=== PATIENT | female | born 1975 | race Two or more races ===

== ENCOUNTER 2024-05-18 07:45 | Emergency (ER) | payer MEDICAID, SELFPAY ==
--- NOTE | ~2024-05-18 | CT_ITS ---
EXAMINATION: CT ABDOMEN AND PELVIS WITHOUT CONTRAST CLINICAL INFORMATION: Right flank pain COMPARISON: None available. TECHNIQUE: Multidetector volumetric imaging was performed from the superior aspect of the liver through the pubic symphysis. Sagittal and coronal reformatted images were obtained on the technologist's workstation. This CT examination was performed using dose optimization techniques as appropriate, variously including the following: *Automated exposure control *Adjustment of mA and/or kV according to patient size (this includes techniques or standardized protocols for targeted exams where dose is matched to indication/reason for exam; i.e. extremities or head) *Use of iterative reconstruction technique DLP: 680 mGy-cm FINDINGS: LUNG BASES: The visualized lung bases are unremarkable. LIVER, GALLBLADDER, AND BILIARY TREE: The liver is normal in size, shape, and attenuation. No focal hepatic lesion or biliary ductal dilatation is present. The gallbladder is unremarkable with no evidence of radiopaque gallstones, gallbladder wall thickening, or obvious pericholecystic inflammatory changes. PANCREAS: Unremarkable. SPLEEN: Unremarkable. ADRENAL GLANDS: Unremarkable. KIDNEYS AND URETERS: There are punctate calcifications seen in the pyramids of both kidneys without hydroureteronephrosis or measurable stones. BLADDER: Unremarkable. GASTROINTESTINAL TRACT: The small and large bowel are unremarkable. The appendix is unremarkable. ABDOMINAL WALL: No significant hernia is appreciated. LYMPH NODES: Normal. VASCULAR: Unremarkable. PELVIC VISCERA: Uterus is enlarged heterogeneous with calcified fibroids left adnexa is unremarkable right ovary is not seen. There is no fluid in cul-de-sac. OSSEOUS STRUCTURES: There are extensive degenerative changes at the level of L5/L5 with subchondral sclerosis and vacuum phenomenon CT/CT abdomen pelvis wo IV con IMPRESSION: 1. Bilateral nephrolithiasis without hydroureteronephrosis. 2. Fibroid uterus. 3. Degenerative changes at the level of L5/L5. Fleischner guidelines were followed.
[2024-05-18 07:50] VITALS: BP 149/85; PULSE 81; RESP 18; TEMP 36.6; O2SAT 98; BMI 39.3
--- NOTE | 2024-05-18 08:57 | PC.NURSE ---
Reports bilat lower ABD pain radiating to bilat flanks for past 3-4 days worsening. Pain is 10/10 aching and sharp. Has hx of kidney stones, reports its feels like that. No issues urinating or using bathroom, denies vomiting or diarrhea. Denies CP, dizziness, fevers, cough. Alert and oriented, breathing even and slightly elevated.
[2024-05-18 09:06] VITALS: RESP 18
[2024-05-18] MEDS: Morphine Sulfate 4 MG/ML CARTRIDGE IVPUSH (09:06)
[2024-05-18] MEDS: ondansetron HCL 4 MG/2 ML VIAL IVPUSH (09:06)
--- NOTE | 2024-05-18 09:06 | ED_ITS ---
HPI - Abdominal Pain General Chief Complaint: Abdominal Pain Stated Complaint: SOB/Fever/Back pain Time Seen by Provider: 05/18/24 08:27 Source: patient, family and old records reviewed Mode of arrival: ambulatory Limitations: no limitations History of Present Illness ED Provider: JODY VIVEROS narrative: 48 yo female with DM, renal colic, here with c/o bilateral flank pain and radiation to RLQ with nausea and the pain is so bad she feels it take her breath. No fevers, no vomiting. Has hx of stones and it feels similar. No diarrhea. no cough, no chest pain. She denies back injury numbness weakness saddle anesthesia or loss of control of bowel or bladder MD elicited complaint: abdominal pain and flank pain Pertinent past history: kidney stones Onset (ago): day(s) (1) Pain Consistency: constant Location: L flank and R flank Severity: moderate Quality: aching Radiation: RLQ Migration to: no migration Exacerbating factors: movement Relieving factors: nothing Context: history of similar episodes Associated symptoms: nausea and other (pain is bad cannot breathe) Related Data Previous Rx's ?Medication ?Instructions ?Recorded cyclobenzaprine 10 mg tablet 10 mg PO TID PRN muscle spasm #20 05/18/24 tabs ibuprofen 600 mg tablet 600 mg PO Q6H PRN pain #30 tabs 05/18/24 lidocaine 5 % topical patch 1 patch topical DAILY #30 ea 05/18/24 Allergies Allergy/AdvReac Type Severity Reaction Status Date / Time fexofenadine Allergy Anaphylaxis Verified 05/18/24 07:54 Review of Systems Review of Systems Constitutional : No Weight loss, No Fever, No Chills ENT/Mouth : No sore throat, No Rhinorrhea Eyes: No Swelling, No Redness Cardiovascular : No Chest Pain, No SOB, NoEdema Respiratory : No Cough, No Sputum, No Wheezing Gastrointestinal : Positive Nausea, no Vomiting, no Diarrhea, positive abdominal Pain, No Hematochezia, No Melena Genitourinary : No Dysuria, No Urinary Frequency, No Hematuria, No Urgency Musculoskeletal : No joint pain, No Myalgias, No Joint Swelling, pos back pain Skin : No Skin Lesions, No rash Neuro : No Weakness, No Numbness, No Dizziness, No Headache Psych : No Anxiety/Panic, No Depression All other systems reviewed and are negative. [facility] Past Medical History Attestation statement: The following information was validated with the patient. Source: old records reviewed Medical History UTI (urinary tract infection) Kidney stone Diabetes Social History Social History (Updated 05/18/24 @ 09:08 by Humaira Camacho DO) Patient Tobacco Use Status: Never used Tobacco Smoked in Last 30 Days: No Use of substances other than those prescribed or required for medical reasons: No Advance Directives: No Advance Directives Information Provided: Yes Do you have a plan to hurt others: No Plan Physical Exam ED Vital Signs: Vital Signs - 24 hr 05/18/24 07:50 05/18/24 09:06 05/18/24 11:19 Temperature 97.9 F 97.9 F Pulse Rate 81 71 Respiratory Rate 18 18 16 Blood Pressure 149/85 H 147/86 H Pulse Oximetry 98 100 Oxygen Delivery Method Room Air Room Air BMI result Body Mass Index 39.3 Appearance: Alert. Oriented X3. No acute distress. Eyes: Pupils equal, round and reactive to light. ENT: Pharynx normal. Neck: Normal inspection. Neck supple. CVS: Normal heart rate and rhythm. Pulses normal. Respiratory: No respiratory distress. Breath sounds normal. Abdomen: Soft and nontender. bilateral mild CVA ttp Skin: Skin warm and dry. Normal skin color. Normal skin turgor. Extremities: No lower extremity edema. No calf ttp no pitting edema Neuro: Oriented X 3. No motor deficit. No sensory deficit. Medical Decision Making Medical Decision Making [facility] Narrative: 48 yo female with DM, renal colic, here with c/o bilateral flank pain radiating to RLQ and nausea she notes pain was bad so it took her breath at this time will need labs, UA, IV morphine for pain, CT scan for renal colic. She reporst pain caused her to feel shortness of breath not that she felt short of breath separately. Possible renal colic, constipation, appendicitis, MSK pain Differential Diagnosis Differential Diagnoses: The differential diagnosis associated with the presentation includes renal colic, constipation, appendicitis, MSK pain Admission/Observation Consideration of admission/observation: Escalation of care including admission/observation considered work up reassuring stable for DC Lab Data [facility] Lab Attestation statement: I reviewed the patient's lab results. 05/18/24 09:05 05/18/24 09:05 Labs: Lab Results 05/18/24 05/18/24 Range/Units 09:05 11:21 WBC 5.1 (4.8-10.8) X10*3/uL RBC 3.93 L (4.20-5.50) X10*6/uL Hgb 11.3 L (12.0-16.0) g/dl Hct 34.2 L (37.0-47.0) % MCV 87.0 (80.0-98.0) fL MCH 28.8 (27.0-33.0) pg MCHC 33.0 (31.0-35.0) g/dl RDW 14.6 (11.0-16.0) % Plt Count 265 (160-400) X10*3/uL MPV 9.4 (9.4-12.3) fL Immature Gran % (Auto) 0.4 (0.0-0.4) % Neut % (Auto) 54.6 (45-73) % Lymph % (Auto) 33.1 (20-40) % [place] % (Auto) 9.2 (2-11) % Eos % (Auto) 2.3 (0-4) % Baso % (Auto) 0.4 (0-2) % Lymph # (Auto) 1.7 (1.2-4.9) X10*3/uL [place] # (Auto) 0.5 (0.1-1.2) X10*3/uL Eos # (Auto) 0.1 (0.0-0.4) X10*3/uL Baso # (Auto) 0.0 (0.0-0.2) X10*3/uL Abs Immat Gran (auto) 0.02 (0.00-0.03) X10*3/uL Absolute Neuts (auto) 2.8 (2.0-8.3) x10*3/uL Absolute Nucleated RBC 0.000 (0.0-0.012) X10*3/uL Nucleated RBC % (auto) 0.0 (0.0-0.2) /100WBC Sodium 139 (135-145) mmol/L Potassium 3.9 (3.3-5.1) mmol/L Chloride 103 (96-108) mmol/L Carbon Dioxide 26 (22-29) mmol/L Anion Gap 14 (12-20) BUN 11 (9-16) mg/dL Creatinine 0.72 (0.5-1.4) mg/dL Estim Creat Clear Calc 84.6 Estimated GFR > 60 Random Glucose 115 (60-115) mg/dL Calcium 9.0 (8.4-10.2) mg/dL Magnesium 1.8 (1.6-2.6) mg/dL Total Bilirubin 0.3 (0.0-1.0) mg/dL Direct Bilirubin 0.1 (0.0-0.5) mg/dL AST 18 (5-31) U/L ALT 16 (0-31) U/L Alkaline Phosphatase 60 (39-117) U/L B-Natriuretic Peptide 69 (<100) pg/mL Total Protein 7.2 (6.5-8.0) g/dL Albumin 3.8 (3.5-5.0) g/dL Lipase 47 (8-78) U/L Beta HCG, Quant < 2 mIU/mL Urine Color Yellow Urine Appearance Clear Urine pH 5.5 (5.0-9.0) Ur Specific [place] 1.010 (1.005-1.025) Urine Protein Negative (Neg-Trace) mg/dL Urine Glucose (UA) Negative (Negative) mg/dL Urine Ketones Negative (Negative) mg/dL Urine Blood Trace H (Negative) Urine Nitrite Negative (Negative) Ur Leukocyte Esterase Negative (Negative) Urine RBC 0-2 (0-2) /HPF Urine WBC 0-5 (0-5) /HPF Ur Squamous Epith Cells 3-5 (0-2) /HPF Urine Bacteria None Seen (None Seen) Hyaline Casts 0-2 (0-2) /LPF Independent Interpretation I performed an independent interpretation of an: CT Scan (no obstructive uropathy) Radiology Impression Discussion of test interpretation with radiology: I have reviewed the radiologist's reading. Independent Historian Clinical information obtained from an independent historian. History obtained from or confirmed by: Spouse External Record Review External record reviewed: Inpatient record Prescription Management I considered prescription management with: Pain Medication and Other Medications Administered Discontinued Medications Generic Name Dose Route Start Last Admin Trade Name Freq PRN Reason Stop Dose Admin Morphine Sulfate 4 mg 05/18/24 08:55 05/18/24 09:06 Morphine Sulfate 4 Mg/Ml Cartridge IVPUSH 05/18/24 08:56 4 mg ONCE ONE Administration Protocol Ondansetron HCl 4 mg 05/18/24 08:55 05/18/24 09:06 Ondansetron Hcl 4 Mg/2 Ml Vial IVPUSH 05/18/24 08:56 4 mg ONCE ONE Administration Discharge Plan Discharge Clinical Impression: Low back pain Qualifiers: Chronicity: acute Back pain laterality: bilateral Sciatica presence: without sciatica Qualified Code(s): M54.50 - Low back pain, unspecified Patient Disposition: Home, Self-Care Instructions: Back Pain (ED) Additional Instructions: no acute findings on CT scan old degenerative changes of spine stones in kidneys but not obstructive and small not the cause of your pain return for worsening symptoms, weakness, numbness or any other concern follow up with your doctor Prescriptions: New cyclobenzaprine 10 mg tablet 10 mg PO TID PRN (Reason: muscle spasm) Qty: 20 0RF lidocaine 5 % adhesive patch,medicated 1 patch topical DAILY Qty: 30 0RF Rx Instructions: leave on most painful area for up to 12 hrs ibuprofen 600 mg tablet 600 mg PO Q6H PRN (Reason: pain) Qty: 30 0RF Stand Alone Forms: Work/School Release Print Language: Maltese
[2024-05-18 09:16] LABS: MANUAL DIFF FLAG NO
[2024-05-18 09:19] LABS: Basophils Percent Auto 0.4 % (0-2); Eosinophils Absolute Auto 0.1 X10*3/uL (0.0-0.4); Eosinophils Percent Auto 2.3 % (0-4); Hematocrit 34.2 % (37.0-47.0); Hemoglobin 11.3 g/dl (12.0-16.0); Imm Gran Abs Auto 0.02 X10*3/uL (0.00-0.03); Imm Gran Pct Auto 0.4 % (0.0-0.4); Lymphocytes Absolute Auto 1.7 X10*3/uL (1.2-4.9); Lymphocytes Percent Auto 33.1 % (20-40); Mean Corpuscular Hemoglobin 28.8 pg (27.0-33.0); Mean Platelet Volume 9.4 fL (9.4-12.3); Monocytes Absolute Auto 0.5 X10*3/uL (0.1-1.2); Monocytes Percent Auto 9.2 % (2-11); Neutrophils Absolute Auto 2.8 x10*3/uL (2.0-8.3); Neutrophils Percent Auto 54.6 % (45-73); Platelet Count 265 X10*3/uL (160-400); Red Blood Count 3.93 X10*6/uL (4.20-5.50); Red Cell Distribution Width 14.6 % (11.0-16.0); White Blood Count 5.1 X10*3/uL (4.8-10.8)
[2024-05-18 09:44] LABS: B Type Natriuretic Peptide 69 pg/mL (<100)
[2024-05-18 09:57] LABS: Alanine Aminotransferase 16 U/L (0-31); Albumin Level 3.8 g/dL (3.5-5.0); Alkaline Phosphatase 60 U/L (39-117); Anion Gap 14 (12-20); Aspartate Amino Transferase 18 U/L (5-31); Bilirubin Direct 0.1 mg/dL (0.0-0.5); Bilirubin Total 0.3 mg/dL (0.0-1.0); Blood Urea Nitrogen 11 mg/dL (9-16); Carbon Dioxide 26 mmol/L (22-29); Chloride 103 mmol/L (96-108); Creatinine Clr Calc Pharmacy 84.6; Estimated Glomerular Filt Rate > 60; Glucose Random 115 mg/dL (60-115); Lipase 47 U/L (8-78); Magnesium 1.8 mg/dL (1.6-2.6); Potassium 3.9 mmol/L (3.3-5.1); Sodium 139 mmol/L (135-145); Total Protein 7.2 g/dL (6.5-8.0)
[2024-05-18 10:03] LABS: HCG Quantitative < 2 mIU/mL
[2024-05-18 11:19] VITALS: BP 147/86; PULSE 71; RESP 16; TEMP 36.6; O2SAT 100
[2024-05-18 11:28] LABS: Appearance Urine Clear; Color Urine Yellow; Glucose Urine UA Negative (Negative); Leukocyte Esterase Urine Negative (Negative); Nitrite Urine Negative (Negative); PH 5.5 (5.0-9.0); UMIC TRIGGER UACC YES; Urine Blood Trace (Negative); Urine Ketones Negative (Negative); Urine Protein Negative (Neg-Trace)
[2024-05-18 11:35] LABS: Bacteria Urine None Seen (None Seen); Hyaline Casts Urine 0-2 /LPF (0-2); RBC Urine 0-2 /HPF (0-2); WBC Urine 0-5 /HPF (0-5)
[2024-05-18 12:40] VITALS: BP 129/85; PULSE 68; RESP 16; TEMP 36.6; O2SAT 98
== END 2024-05-18 12:42 | disposition home or self-care (01) ==
PROVIDERS: Emergency Provider Emergency Medicine
DX: M54.50 Low back pain, unspecified (principal); R06.02 Shortness of breath; R50.9 Fever, unspecified; R10.31 Right lower quadrant pain; R11.0 Nausea; Z79.899 Other long term (current) drug therapy
CPT/HCPCS: 36415; 74176; 80048; 80076; 81001; 83690; 83735; 83880; 84702; 85025; 96374; 96375; 99284; J2270; J2405

== ENCOUNTER 2024-05-26 11:14 | Emergency (ER) | payer MEDICAID, SELFPAY ==
--- NOTE | ~2024-05-26 | CT_ITS ---
EXAMINATION: CT ABDOMEN AND PELVIS WITH CONTRAST CLINICAL INFORMATION: Bilateral lower abdominal pain COMPARISON: CT abdomen pelvis 05/18/2024 TECHNIQUE: Multidetector volumetric images were obtained from the superior aspect of the liver through the pubic symphysis following administration 85 mL of Omnipaque 350 intravenous contrast. Sagittal and coronal reformatted images were obtained on the technologist's workstation. Oral contrast: No This CT examination was performed using dose optimization techniques as appropriate, variously including the following: *Automated exposure control *Adjustment of mA and/or kV according to patient size (this includes techniques or standardized protocols for targeted exams where dose is matched to indication/reason for exam; i.e. extremities or head) *Use of iterative reconstruction technique DLP: 633 mGy-cm FINDINGS: LUNG BASES: The visualized lung bases are unremarkable. Multiple calcified lower lobe granulomas are seen. LIVER, GALLBLADDER, AND BILIARY TREE: The liver is normal in size, shape, and attenuation. No focal hepatic lesion or biliary ductal dilatation is present. The gallbladder is unremarkable with no evidence of radiopaque gallstones, gallbladder wall thickening, or obvious pericholecystic inflammatory changes. PANCREAS: Unremarkable. SPLEEN: Unremarkable. ADRENAL GLANDS: Unremarkable. KIDNEYS AND URETERS: The kidneys are normal in size, shape, and attenuation. The previously mentioned punctate calcifications seen in the renal pyramids are not really appreciated on the current study. No definite nephrolithiasis. No hydronephrosis or hydroureter seen. No perinephric stranding. BLADDER: Very distended but unremarkable GASTROINTESTINAL TRACT: The small and large bowel are unremarkable. The appendix is unremarkable. ABDOMINAL WALL: No significant hernia is appreciated. LYMPH NODES: Normal. VASCULAR: Unremarkable. PELVIC VISCERA: The uterus is retroverted and there is at least one large somewhat necrotic fibroid measuring 4.5 x 4.4 x 4.5 cm. Other fibroids may be present as well. This would be better evaluated with transabdominal and endovaginal ultrasound. Abnormal adnexal mass is not seen. No free intraperitoneal fluid. OSSEOUS STRUCTURES: Degenerative change seen at L4-L5. Osseous structures otherwise unremarkable. CT/CT abdomen pelvis w IV con IMPRESSION: 1. A cause for the patient's lower abdominal pain has not been found. 2. Incidental note made of calcified pulmonary granulomas, uterine fibroids and degenerative changes L4-L5. Fleischner guidelines were followed.
[2024-05-26 11:20] VITALS: BP 123/82; PULSE 92; RESP 18; TEMP 36.6; O2SAT 95; BMI 39.0
--- NOTE | 2024-05-26 11:22 | ED_ITS ---
HPI - General Adult General Chief complaint: Urogenital-Female Stated complaint: Kidney stone Time Seen by Provider: 05/26/24 12:12 Source: patient Mode of arrival: ambulatory Limitations: no limitations History of Present Illness HPI narrative: This is a 48-year-old woman with a past medical history [id number] diabetes mellitus (on metformin), hypertension, renal colic, nephrolithiasis who presents for evaluation abdominal pain. 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 Patient states waxing and waning lower abdominal discomfort that wraps around the back. She states taking ibuprofen as recently prescribed every 6 hours. She states minimal relief with ibuprofen. She states morphine helped when she was here last week. She states associated nausea without emesis. She states no dysuria or urinary frequency/urgency. She states is able to void, but states voiding only a small amount. She states no fevers or chills. She states no urinary retention or urinary incontinence. She states no paresthesias. She states no changes to bowel habits. She states that she is passing flatus. She states no melena or hematochezia. She states no history of back surgery. She states no chest pain or dyspnea. She states no trauma or falls. She states her only abdominal surgery is a section 20 years ago. She states that she does not smoke, drink alcohol or use recreational/illicit drugs. Related Data Previous Rx's ?Medication ?Instructions ?Recorded cyclobenzaprine 10 mg tablet 10 mg PO TID PRN muscle spasm #20 05/18/24 tabs ibuprofen 600 mg tablet 600 mg PO Q6H PRN pain #30 tabs 05/18/24 lidocaine 5 % topical patch 1 patch topical DAILY #30 ea 05/18/24 Allergies Allergy/AdvReac Type Severity Reaction Status Date / Time fexofenadine Allergy Anaphylaxis Verified 05/26/24 11:31 Review of Systems 2 Review of Systems: ROS as per HPI [facility] Past Medical History Medical History UTI (urinary tract infection) Kidney stone Diabetes Social History Social History (Updated 05/18/24 @ 09:08 by Humaira Camacho DO) Patient Tobacco Use Status: Never used Tobacco Smoked in Last 30 Days: No Use of substances other than those prescribed or required for medical reasons: No Advance Directives: No Advance Directives Information Provided: Yes Do you have a plan to hurt others: No Plan Patient : No Physical Exam ED Vital Signs: Vital Signs - 24 hr 05/26/24 11:20 Temperature 97.8 F Pulse Rate 92 Respiratory Rate 18 Blood Pressure 123/82 Pulse Oximetry 95 Oxygen Delivery Method Room Air BMI result Body Mass Index 39.0 Gen: NAD, AOx3 HEENT: NCAT, EOMI, normal conjunctiva CV: RRR Pulm: CTAB, no increased work of breathing MSK: No midline vertebral tenderness to palpation, no costovertebral angle tenderness GI: Soft, NTND, no rebound, guarding or rigidity Neuro: Grossly non focal Course Course Course Narrative: This is a rapid medical exam performed by Rocco Ding NP: Additional HPI, ROS, PE not included below will be deferred to primary provider. Patient is a 48-year-old Mongolian speaking female with history of DM, kidney stones presenting to the ED with complaint of left lower back pain radiating to LLQ, difficulty urinating. Also complains of nausea, headache, abdominal cramping. Denies fevers. Plan: labs, UA Medications Administered Discontinued Medications Generic Name Dose Route Start Last Admin Trade Name Freq PRN Reason Stop Dose Admin Lactated Ringer's 1,000 mls @ 999 mls/hr 05/26/24 12:15 05/26/24 13:40 Lr IV 05/26/24 13:15 Infused .Q1H1M ONE Infusion Iohexol 100 ml 05/26/24 13:45 05/26/24 13:45 Iohexol 350 Mg/Ml 100 Ml Infus..Btl IV 05/26/24 13:46 85 ml ONCE ONE Administration Ketorolac Tromethamine 15 mg 05/26/24 12:15 05/26/24 12:28 Ketorolac Tromethamine 15 Mg/Ml Vial IVPUSH 05/26/24 12:16 15 mg ONCE ONE Administration Ondansetron HCl 4 mg 05/26/24 12:23 05/26/24 12:28 Ondansetron Hcl 4 Mg/2 Ml Vial IVPUSH 05/26/24 12:24 4 mg ONCE ONE Administration Medical Decision Making Medical Decision Making MDM Narrative: Differential diagnosis includes, but is not limited to appendicitis, renal colic, abdominal wall strain. Considered urinary retention, but patient is void spontaneously and does not have a palpable bladder on exam. Further, she appears comfortable and would expect greater degree of discomfort if she was experiencing urinary retention. Patient is provided 1 L IV LR, 4 mg IV Zofran and 15 mg IV Toradol. Patient is afebrile and hemodynamically stable on room air. Exam is benign and reassuring. I reviewed and interpreted labs, which are noncontributory. Urinalysis notable for blood and RBCs, which is likely secondary to known nephrolithiasis. Otherwise urinalysis is reassuring and is not suggestive of urinary tract infection. Further, patient does not have dysuria, urinary frequency/urgency, flank pain or fevers to suggest urinary tract infection. CT imaging is unremarkable for any acute findings. There are incidentally noted calcified pulmonary granulomas, uterine fibroids and degenerative changes of L4 and L5. On re-examination, patient is well-appearing and in no acute distress. There is no indication for further emergent evaluation in this otherwise well-appearing patient as above. ?Patient is provided written and verbal instructions, educational materials, recommendations for outpatient follow-up, strict return precautions and teach back is performed. ?Patient states understanding and agreement with plan of care. ?Patient is discharged home in stable and improved condition. Admission/Observation Consideration of admission/observation: Escalation of care including admission/observation considered Lab Data MDM Lab Attestation statement: I reviewed the patient's lab results. 05/26/24 11:40 05/26/24 11:40 Labs: Lab Results 05/26/24 05/26/24 Range/Units 11:40 12:19 WBC 5.9 (4.8-10.8) X10*3/uL RBC 4.30 (4.20-5.50) X10*6/uL Hgb 12.2 (12.0-16.0) g/dl Hct 36.8 L (37.0-47.0) % MCV 85.6 (80.0-98.0) fL MCH 28.4 (27.0-33.0) pg MCHC 33.2 (31.0-35.0) g/dl RDW 14.6 (11.0-16.0) % Plt Count 310 (160-400) X10*3/uL MPV 9.2 L (9.4-12.3) fL Immature Gran % (Auto) 0.3 (0.0-0.4) % Neut % (Auto) 59.8 (45-73) % Lymph % (Auto) 30.2 (20-40) % [place] % (Auto) 7.3 (2-11) % Eos % (Auto) 1.7 (0-4) % Baso % (Auto) 0.7 (0-2) % Lymph # (Auto) 1.8 (1.2-4.9) X10*3/uL [place] # (Auto) 0.4 (0.1-1.2) X10*3/uL Eos # (Auto) 0.1 (0.0-0.4) X10*3/uL Baso # (Auto) 0.0 (0.0-0.2) X10*3/uL Abs Immat Gran (auto) 0.02 (0.00-0.03) X10*3/uL Absolute Neuts (auto) 3.5 (2.0-8.3) x10*3/uL Absolute Nucleated RBC 0.000 (0.0-0.012) X10*3/uL Nucleated RBC % (auto) 0.0 (0.0-0.2) /100WBC Sodium 137 (135-145) mmol/L Potassium 3.9 (3.3-5.1) mmol/L Chloride 103 (96-108) mmol/L Carbon Dioxide 26 (22-29) mmol/L Anion Gap 12 (12-20) BUN 15 (9-16) mg/dL Creatinine 0.78 (0.5-1.4) mg/dL Estim Creat Clear Calc 77.8 Estimated GFR > 60 Random Glucose 101 (60-115) mg/dL Calcium 9.2 (8.4-10.2) mg/dL Total Bilirubin 0.4 (0.0-1.0) mg/dL AST 16 (5-31) U/L ALT 17 (0-31) U/L Alkaline Phosphatase 70 (39-117) U/L Total Protein 7.5 (6.5-8.0) g/dL Albumin 4.0 (3.5-5.0) g/dL Lipase 28 (8-78) U/L Beta HCG, Quant < 2 mIU/mL Urine Color Yellow Urine Appearance Clear Urine pH 6.0 (5.0-9.0) Ur Specific [place] 1.025 (1.005-1.025) Urine Protein Negative (Neg-Trace) mg/dL Urine Glucose (UA) Negative (Negative) mg/dL Urine Ketones Negative (Negative) mg/dL Urine Blood Small (1+) H (Negative) Urine Nitrite Negative (Negative) Ur Leukocyte Esterase Negative (Negative) Urine RBC 3-5 H (0-2) /HPF Urine WBC 0-5 (0-5) /HPF Ur Squamous Epith Cells 6-10 (0-2) /HPF Urine Bacteria None Seen (None Seen) Hyaline Casts 0-2 (0-2) /LPF Radiology Impression Discussion of test interpretation with radiology: I have reviewed the radiologist's reading. Radiologist Impression: IMPRESSION: 1. A cause for the patient's lower abdominal pain has not been found. 2. Incidental note made of calcified pulmonary granulomas, uterine fibroids and degenerative changes L4-L5. Fleischner guidelines were followed. Dictated By: Shankar Potter MD Signed By: <Electronically signed by Shankar Potter MD in OV> 05/26/24 2741 Discharge Plan Discharge Clinical Impression: Abdominal pain Patient Disposition: Home, Self-Care Instructions: Abdominal Pain (ED) Additional Instructions: You were seen and evaluated in the emergency room. Your vital signs were normal and he did not have fever. ? Your blood work was normal. Your chest x-ray was normal. Your CAT scan was normal and did not identify any cause for your abdominal pain. Please follow-up with your primary care doctor in the next 5-7 days. ? Please return to the emergency room if you develop any worsening symptoms including, but not limited to worsening abdominal pain, intractable nausea/vomiting, inability to eat/drink, blood in your stools, chest pain or difficulty breathing. Fue atendido y evaluado en la peyton de emergencias. [place] signos vitales maria elena normales y no ten?a fiebre. ? Tu an?lisis de brendon fue normal. Bar radiograf?a de t?rax fue normal. Bar tomograf?a computarizada fue normal y no identific? ninguna causa para bar dolor abdominal. Jocelyn un seguimiento con bar m?dico de atenci?n primaria en los pr?ximos 5 a 7 d?as. ? Regrese a la peyton de emergencias si presenta alg?n s?ntoma que empeore, incluidos, entre otros, un empeoramiento del dolor abdominal, n?useas/v?mitos intratables, incapacidad para comer/beber, brendon en las heces, dolor en el pecho o dificultad para respirar. Prescriptions: No Action cyclobenzaprine 10 mg tablet 10 mg PO TID PRN (Reason: muscle spasm) Qty: 20 0RF lidocaine 5 % adhesive patch,medicated 1 patch topical DAILY Qty: 30 0RF Rx Instructions: leave on most painful area for up to 12 hrs ibuprofen 600 mg tablet 600 mg PO Q6H PRN (Reason: pain) Qty: 30 0RF Referrals: [facility] [Provider Group] Print Language: Mongolian
[2024-05-26 11:44] LABS: MANUAL DIFF FLAG NO
[2024-05-26 11:47] LABS: Basophils Percent Auto 0.7 % (0-2); Eosinophils Absolute Auto 0.1 X10*3/uL (0.0-0.4); Eosinophils Percent Auto 1.7 % (0-4); Hematocrit 36.8 % (37.0-47.0); Hemoglobin 12.2 g/dl (12.0-16.0); Imm Gran Abs Auto 0.02 X10*3/uL (0.00-0.03); Imm Gran Pct Auto 0.3 % (0.0-0.4); Lymphocytes Absolute Auto 1.8 X10*3/uL (1.2-4.9); Lymphocytes Percent Auto 30.2 % (20-40); Mean Corpuscular HGB Conc 33.2 g/dl (31.0-35.0); Mean Corpuscular Hemoglobin 28.4 pg (27.0-33.0); Mean Corpuscular Volume 85.6 fL (80.0-98.0); Mean Platelet Volume 9.2 fL (9.4-12.3); Monocytes Absolute Auto 0.4 X10*3/uL (0.1-1.2); Monocytes Percent Auto 7.3 % (2-11); Neutrophils Absolute Auto 3.5 x10*3/uL (2.0-8.3); Neutrophils Percent Auto 59.8 % (45-73); Platelet Count 310 X10*3/uL (160-400); Red Cell Distribution Width 14.6 % (11.0-16.0); White Blood Count 5.9 X10*3/uL (4.8-10.8)
[2024-05-26 12:08] LABS: Alanine Aminotransferase 17 U/L (0-31); Alkaline Phosphatase 70 U/L (39-117); Anion Gap 12 (12-20); Aspartate Amino Transferase 16 U/L (5-31); Bilirubin Total 0.4 mg/dL (0.0-1.0); Blood Urea Nitrogen 15 mg/dL (9-16); Calcium 9.2 mg/dL (8.4-10.2); Carbon Dioxide 26 mmol/L (22-29); Chloride 103 mmol/L (96-108); Creatinine Clr Calc Pharmacy 77.8; Estimated Glomerular Filt Rate > 60; Glucose Random 101 mg/dL (60-115); HCG Quantitative < 2 mIU/mL; Potassium 3.9 mmol/L (3.3-5.1); Sodium 137 mmol/L (135-145); Total Protein 7.5 g/dL (6.5-8.0)
--- NOTE | 2024-05-26 12:17 | PC.NURSE ---
patient arrives through external triage for chief complaint of abdominal pain for the last few days and says that it radiates to her back patient state she has a hx of kidney stones. states she is urinating very little frequently. able to provide urine sample at this time
[2024-05-26] MEDS: Ketorolac Tromethamine 15 MG/ML VIAL IVPUSH (12:28)
[2024-05-26] MEDS: ondansetron HCL 4 MG/2 ML VIAL IVPUSH (12:28)
[2024-05-26 12:30] LABS: Appearance Urine Clear; Color Urine Yellow; Glucose Urine UA Negative (Negative); Leukocyte Esterase Urine Negative (Negative); Nitrite Urine Negative (Negative); Specific Gravity - Urine 1.025 (1.005-1.025); UMIC TRIGGER UACC YES; Urine Blood Small (1+) (Negative); Urine Ketones Negative (Negative); Urine Protein Negative (Neg-Trace)
[2024-05-26] MEDS: Lactated Ringers 1,000 ML 999 ML IV (12:30)
[2024-05-26 12:39] LABS: Bacteria Urine None Seen (None Seen); Hyaline Casts Urine 0-2 /LPF (0-2); WBC Urine 0-5 /HPF (0-5)
[2024-05-26 12:53] LABS: Lipase 28 U/L (8-78)
[2024-05-26] MEDS: iohexoL 350 MG/ML 100 ML INFUS..BTL IV (13:45)
--- NOTE | 2024-05-26 13:49 | PC.NURSE ---
patient amubulatory with steady gait back from Ct scan at this time.
[2024-05-26 16:42] VITALS: BP 136/92; PULSE 97; RESP 18; TEMP 36.8; O2SAT 98
== END 2024-05-26 16:44 | disposition home or self-care (01) ==
PROVIDERS: Registered Nurse Emergency; Emergency Provider Emergency Medicine
DX: R10.30 Lower abdominal pain, unspecified (principal); R11.0 Nausea; E11.9 Type 2 diabetes mellitus without complications; I10 Essential (primary) hypertension; Z79.84 Long term (current) use of oral hypoglycemic drugs; Z79.899 Other long term (current) drug therapy
CPT/HCPCS: 36415; 74177; 80053; 81001; 83690; 84702; 85025; 96361; 96374; 96375; 99284; 99285; J1885; J2405; J7120; Q9967